=== PATIENT | male | born 1980 | race Caucasian/White ===

== ENCOUNTER 2019-06-12 08:59 | Emergency (ER) | payer OTHER ==
[~2019-06-12] VITALS: Ht 180.3 cm; Wt 78.5 kg
[2019-06-12 09:06] VITALS: Ht 180.3 cm; Wt 78.5 kg
[2019-06-12 10:30] VITALS: BP 110/62
== END 2019-06-12 10:30 | disposition home or self-care (01) ==
LOC: ED 08:59
DX: S01.81XA Laceration without foreign body of other part of head, initial encounter (principal); W50.0XXA Accidental hit or strike by another person, initial encounter; Y93.89 Activity, other specified; Y92.89 Other specified places as the place of occurrence of the external cause; Y99.8 Other external cause status
CPT/HCPCS: 90715; J2001

== ENCOUNTER 2019-06-19 14:25 | Emergency (ER) | payer OTHER ==
[~2019-06-19] VITALS: Ht 182.9 cm; Wt 77.6 kg
[2019-06-19 14:46] VITALS: BP 108/59; Ht 182.9 cm; Wt 77.6 kg
== END 2019-06-19 15:00 | disposition home or self-care (01) ==
LOC: ED 14:25
DX: S01.111D Laceration without foreign body of right eyelid and periocular area, subsequent encounter (principal); X58.XXXD Exposure to other specified factors, subsequent encounter